=== PATIENT | male | born 1950 | race Caucasian/White ===

== ENCOUNTER → 2017-06-09 | Outpatient (CLI) | payer MEDICARE, BC ==
[~2017-06-09] MED LIST: OMNIPAQUE 350 MG/ML, 75ML BOTTLE ONE
== END | disposition home or self-care (01) ==
LOC: CFH 13:17
PROVIDERS: ATTEND Internal Medicine
DX: J98.4 Other disorders of lung (principal); J44.1 Chronic obstructive pulmonary disease with (acute) exacerbation
CPT/HCPCS: 71260; 82565; Q9967

== ENCOUNTER → 2019-05-13 | Outpatient (CLI) | payer MEDICARE, BC | END | disposition home or self-care (01) | LOC: PETCFH 07:52 | PROVIDERS: ATTEND Internal Medicine Hematology & Oncology | DX: C90.00 Multiple myeloma not having achieved remission (principal); E11.9 Type 2 diabetes mellitus without complications; K80.20 Calculus of gallbladder without cholecystitis without obstruction; I70.0 Atherosclerosis of aorta; N20.1 Calculus of ureter; N13.30 Unspecified hydronephrosis | CPT/HCPCS: 78815; A9552 ==

== ENCOUNTER → 2019-05-26 | Outpatient (CLI) | payer MEDICARE, BC | END | disposition home or self-care (01) | LOC: CFH 06:57 | PROVIDERS: ATTEND Internal Medicine Hematology & Oncology | DX: N13.2 Hydronephrosis with renal and ureteral calculous obstruction (principal); C90.00 Multiple myeloma not having achieved remission; N28.1 Cyst of kidney, acquired | CPT/HCPCS: 76770 ==

== ENCOUNTER 2019-09-08 06:52 | Day surgery (SDC) | payer MEDICARE, BC ==
[~2019-09-08] VITALS: Ht 172.7 cm; Wt 140.0 kg
[~2019-09-08 06:52] MED LIST changes: +ALPR0.5T7 PO; +ASPI325T17 PO; +BUSP15TA PO; +LEVO75TA PO; +LIRA0.6P SC; +LISI-170 PO; +METF500T17 PO; +MULT-658 PO; -OMNIPAQUE 350 MG/ML, 75ML BOTTLE ONE; +PIOG30TA23 PO; +SERT100T PO; +SIMV20TA19 PO; +THYR60TA PO; +advair INH; +breo INH; +dexamethasone PO; +revlimid PO
[2019-09-08] MEDS ORDERED: LACTATED RINGERS 1,000 ML IV SCH (07:20)
[2019-09-08 07:26] VITALS: BP 133/81
[2019-09-08] MEDS ORDERED: LIDOCAINE-MPF 1%, 2ML INFIL ONE (07:30)
[2019-09-08] MEDS ORDERED: CHLORHEXIDINE 15 ML UDC MM ONE (07:30)
[2019-09-08] MEDS ORDERED: METOCLOPRAMIDE 5 MG/ML, 2ML IVPush PRN (08:00)
[2019-09-08] MEDS ORDERED: KETOROLAC 30 MG/1 ML IVPush PRN (08:00)
[2019-09-08] MEDS ORDERED: DIPHENHYDRAMINE 50 MG/ML, 1ML IVPush PRN (08:00)
[2019-09-08] MEDS ORDERED: FENTANYL PF 100 MCG/2ML IV PRN (08:00)
[2019-09-08] MEDS ORDERED: HYDROmorphone 1 MG/ML, 1ML INJ IVPush PRN (08:00)
[2019-09-08] MEDS ORDERED: EPHEDRINE 50 MG/ML, 1ML IVPush PRN (08:00)
[2019-09-08] MEDS ORDERED: OXYcodone 5 MG/5 ML ORAL.SOL UDC PO PRN (08:00)
[2019-09-08] MEDS ORDERED: DIAZEPAM 5 MG/ML, 2ML IVPush PRN (08:00)
[2019-09-08] MEDS ORDERED: HYDROcodone/APAP 7.5-325MG/15ML UDC PO PRN (08:00)
[2019-09-08] MEDS ORDERED: EPHEDRINE 50 MG/ML, 1ML IM PRN (08:00)
[2019-09-08] MEDS ORDERED: MEPERIDINE/PF 25MG/0.5ML IVPush PRN (08:00)
[2019-09-08] MEDS ORDERED: MIDAZOLAM 1 MG/ML, 2ML IV PRN (08:00)
[2019-09-08] MEDS ORDERED: HALOPERIDOL 5 MG/ML IV PRN (08:00)
[2019-09-08] MEDS ORDERED: hydrALAzine 20 MG/ML, 1ML IV PRN (08:00)
[2019-09-08] MEDS ORDERED: ACETAMINOPHEN 325 MG TABLET PO PRN (08:00)
[2019-09-08] MEDS ORDERED: LABETALOL 5MG/ML, 20ML IV PRN (08:00)
[2019-09-08] MEDS ORDERED: ALBUTEROL/IPRATROPIUM 2.5MG/0.5MG, 3 ML NPPB PRN (08:00)
[2019-09-08] MEDS ORDERED: LORazepam 2 MG/ML, 1ML IVPush PRN (08:00)
[2019-09-08] MEDS ORDERED: PROPOFOL 10 MG/ML, 20ML ONE (10:13)
[2019-09-08] MEDS ORDERED: LIDOCAINE-MPF 2% ,5ML ONE (10:13)
[2019-09-08] MEDS ORDERED: GLYCOPYRROLATE 0.2MG/1ML, 5ML ONE (10:13)
[2019-09-08] MEDS ORDERED: DEXAMETHASONE 4 MG/ML, 1ML ONE (10:13)
[2019-09-08] MEDS ORDERED: MIDAZOLAM 1 MG/ML, 2ML ONE (10:14)
== END 2019-09-08 13:15 | disposition home or self-care (01) ==
LOC: OUT 06:52
PROVIDERS: ATTEND Internal Medicine Gastroenterology
DX: Z12.11 Encounter for screening for malignant neoplasm of colon (principal); Z11.59 Encounter for screening for other viral diseases; K63.5 Polyp of colon; Q43.8 Other specified congenital malformations of intestine; G47.33 Obstructive sleep apnea (adult) (pediatric); I10 Essential (primary) hypertension; E66.01 Morbid (severe) obesity due to excess calories; J44.9 Chronic obstructive pulmonary disease, unspecified; E11.9 Type 2 diabetes mellitus without complications; Z79.84 Long term (current) use of oral hypoglycemic drugs; Z79.890 Hormone replacement therapy; Z79.899 Other long term (current) drug therapy; Z99.81 Dependence on supplemental oxygen
CPT/HCPCS: 45385; 82962; 88305; 93005; J1100; J2250; J2704; J7120; U0001

== ENCOUNTER → 2020-04-30 | Outpatient (CLI) | payer MEDICARE, BC ==
[~2020-04-30] MED LIST changes: +APIX5TAB PO; +CLON0.5T PO; +FLUT1AER INH; +FLUT1DIS IH; +LEVO750T6 PO; +ONDA8TAB9 PO; +PRED20TA PO; +REGADENOSON 0.4 MG/5 ML SYRINGE ONE
== END | disposition home or self-care (01) ==
LOC: CFH 08:20
PROVIDERS: ATTEND Internal Medicine Cardiovascular Disease
DX: I11.0 Hypertensive heart disease with heart failure (principal); R06.02 Shortness of breath; I50.33 Acute on chronic diastolic (congestive) heart failure
CPT/HCPCS: 78452; 93017; A9502; J2785

== ENCOUNTER → 2020-05-10 | Outpatient (CLI) | payer MEDICARE, BC ==
[~2020-05-10] MED LIST changes: -REGADENOSON 0.4 MG/5 ML SYRINGE ONE
== END | disposition home or self-care (01) ==
LOC: RAD 07:44
PROVIDERS: ATTEND Internal Medicine Gastroenterology
DX: R91.8 Other nonspecific abnormal finding of lung field (principal); K59.00 Constipation, unspecified; R19.7 Diarrhea, unspecified; R94.5 Abnormal results of liver function studies; E66.01 Morbid (severe) obesity due to excess calories; R15.9 Full incontinence of feces; K80.20 Calculus of gallbladder without cholecystitis without obstruction
CPT/HCPCS: 71250; 76700